=== PATIENT | male | born 1980 | race Caucasian/White ===

== ENCOUNTER 2017-06-21 17:01 | Emergency (ER) | payer SELFPAY ==
[~2017-06-21] VITALS: Ht 175.3 cm; Wt 85.8 kg
[2017-06-21 17:13] VITALS: BP 160/99; PULSE 84; RESP 16; TEMP 98.7; O2SAT 98
[2017-06-21] MEDS ORDERED: ONDANSETRON HCL 4 MG/2 ML VIAL IV PUSH ONE (19:15)
[2017-06-21] MEDS ORDERED: KETOROLAC TROMETHAMINE 30 MG/ML (IVP) VIAL IV PUSH ONE (19:15)
[2017-06-21] MEDS ORDERED: MORPHINE SULFATE 4 MG/ML INJ IV PUSH ONE (19:15)
[2017-06-21 19:19] VITALS: BP 123/79; PULSE 91; RESP 20; O2SAT 100
[2017-06-21 19:29] LABS: AUTOMATED NEUTROPHIL # 7.1 TH/MM3 (1.8-7.7); BASOPHIL # 0.4 TH/MM3 (0-0.2); BASOPHIL % 3.2 % (0.0-2.0); EOSINOPHIL # 0.1 TH/MM3 (0-0.4); EOSINOPHIL % 1.3 % (0.0-4.0); HEMATOCRIT 46.3 % (39.0-51.0); HEMOGLOBIN 15.9 GM/DL (13.0-17.0); LYMPH % 25.5 % (9.0-44.0); LYMPHOCYTE # 2.9 TH/MM3 (1.0-4.8); MEAN CELL VOLUME 91.2 FL (80.0-100.0); MEAN CORPUSCULAR HEMOGLOBIN 31.4 PG (27.0-34.0); MEAN CORPUSCULAR HGB CONC 34.4 % (32.0-36.0); MEAN PLATELET VOLUME 9.9 FL (7.0-11.0); MONOCYTE # 0.7 TH/MM3 (0-0.9); PLATELET COUNT 250 TH/MM3 (150-450); RED BLOOD COUNT 5.08 MIL/MM3 (4.50-5.90); RED CELL DISTRIBUTION WIDTH 12.8 % (11.6-17.2); WHITE BLOOD COUNT 11.2 TH/MM3 (4.0-11.0)
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
[2017-06-21 19:40] LABS: CHLORIDE 109 MEQ/L (98-107); SODIUM (NA) 140 MEQ/L (136-145)
[2017-06-21 19:43] LABS: CALCIUM 9.2 MG/DL (8.5-10.1)
[2017-06-21 19:44] LABS: ALBUMIN 4.2 GM/DL (3.4-5.0); BICARBONATE 24.7 MEQ/L (21.0-32.0); BLOOD UREA NITROGEN 12 MG/DL (7-18); GLUCOSE,RANDOM 81 MG/DL (74-106)
[2017-06-21 19:47] LABS: ALT (GPT) 58 U/L (12-78); AST (GOT) 37 U/L (15-37); CREATININE 0.89 MG/DL (0.60-1.30); GLOMERULAR FILTRATION RATE 98 ML/MIN (>89)
[2017-06-21 19:49] LABS: TOTAL BILIRUBIN ADULT 0.3 MG/DL (0.2-1.0); TOTAL PROTEIN 7.9 GM/DL (6.4-8.2)
[2017-06-21 19:50] LABS: ALKALINE PHOSPHATASE 87 U/L (45-117)
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
[2017-06-21] MEDS ORDERED: ROBA500T PO (20:20)
[2017-06-21] MEDS ORDERED: DICL75TA PO (20:20)
[2017-06-21] MEDS ORDERED: PRED20 PO (20:32)
[2017-06-21] MEDS ORDERED: HYDR-3516 PO (20:32)
[2017-06-21 20:45] VITALS: BP 148/77; PULSE 86; RESP 14; O2SAT 96
[2017-06-21] MEDS ORDERED: DEXAMETHASONE SOD PHOS 20 MG/5 ML VIAL IV PUSH ONE (20:45)
[2017-06-21] MEDS ORDERED: MORPHINE SULFATE 2 MG/ML INJ IV PUSH ONE (20:45)
[2017-06-21 20:50] VITALS: RESP 14
== END 2017-06-21 21:19 | disposition home or self-care (01) ==
LOC: PHED 17:01 → PHEFT 21:19
DX: M54.6 Pain in thoracic spine (principal); R10.12 Left upper quadrant pain; Z72.0 Tobacco use
CPT/HCPCS: 72128; 80053; 83690; 85025; 96374; 96375; 96376; 99284; J1100; J1885; J2270; J2405

== ENCOUNTER 2017-07-27 11:22 | Emergency (ER) | payer SELFPAY ==
[~2017-07-27] VITALS: Ht 175.3 cm; Wt 83.9 kg
[~2017-07-27 11:22] MED LIST: DICL75TA PO; HYDR-3516 PO; PRED20 PO; ROBA500T PO
[2017-07-27 11:37] VITALS: BP 149/74; PULSE 88; RESP 16; TEMP 98.3; O2SAT 96
[2017-07-27] MEDS ORDERED: LIDOCAINE HCL 1% PF 30 ML VIAL ONE (11:54)
[2017-07-27] MEDS ORDERED: DICL75TA PO (11:55)
[2017-07-27] MEDS ORDERED: CEPH-460 PO (11:55)
[2017-07-27] MEDS ORDERED: CLIN150C14 PO (11:55)
[2017-07-27] MEDS ORDERED: LIDOCAINE HCL 1% 50 ML VIAL INFIL ONE (12:00)
[2017-07-27] MEDS ORDERED: CLINDAMYCIN PHOS 600 MG/4 ML VIAL IM ONE (12:00)
[2017-07-27] MEDS ORDERED: BUPIVACAINE HCL PF 0.5% 10 ML VIAL INFIL ONE (12:00)
[2017-07-27] MEDS ORDERED: BACT800T5 PO (12:20)
--- NOTE | 2017-07-27 12:27 | PD ---
HPI Chief Complaint: Skin Problem Time Seen by Provider: 11:49 Travel History International Travel<30 days: No Contact w/Intl Traveler<30days: No Traveled to known affect area: No History of Present Illness HPI 36-year-old male that presents to the ED for evaluation of possible infection to his left index finger. Per patient she's had this for about a week and half. 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 Per patient he believes that he cut it with a piece of metal. Per patient he was reddened pimple-like yesterday and he himself expressed the pus. Per patient he was able to get some pulsatile but today became more severe and more painful. Patient is concerned that there is an infection in there. Per patient he is up-to-date with his tetanus. No other medical issues. No foreign body sensation. Able to move it fully but has pain with flexion. All the pain and swelling since to the dorsal aspect of the PIP area of the left index finger. Some soft tissue swelling noted. Erythema noted. Per patient the pain is 8 out of 10 especially with movement and touch. PFSH Past Medical History Hx Anticoagulant Therapy: No Diabetes: No Past Surgical History Abdominal Surgery: Yes (HERNIA) Social History Alcohol Use: Yes Tobacco Use: Yes Substance Use: No Allergies-Medications (Allergen,Severity, Reaction): Coded Allergies: No Known Allergies (Unverified , 07/27/17) Reported Meds & Prescriptions Reported Meds & Active Scripts Active Bactrim DS (Sulfamethoxazole-Trimethoprim) 800-160 Mg Tab 1 Tab PO BID 10 Days Clindamycin (Clindamycin HCl) 150 Mg Cap 300 Mg PO Q8HR [address] (Diclofenac Sodium) 75 Mg Tabdr 75 Mg PO BID PRN Review of Systems Except as stated in HPI: all other systems reviewed are Neg Physical Exam Narrative GENERAL: SKIN: Warm and dry. HEAD: Atraumatic. Normocephalic. EYES: Pupils equal and round. No scleral icterus. No injection or drainage. ENT: No nasal bleeding or discharge. Mucous membranes pink and moist. NECK: Trachea midline. No JVD. CARDIOVASCULAR: Regular rate and rhythm. RESPIRATORY: No accessory muscle use. Clear to auscultation. Breath sounds equal bilaterally. GASTROINTESTINAL: Abdomen soft, non-tender, nondistended. Hepatic and splenic margins not palpable. MUSCULOSKELETAL: Extremities without clubbing, cyanosis, or edema. No obvious deformities. Full range of motion of the upper and lower extremities bilaterally. Patient has full range of motion of the left index finger but has pain with flexion. Unable to do it however. Patient has soft tissue swelling as well as erythema on the dorsal aspect of the left PIP joint. Joint itself appears to be intact. Most of the swelling appears to be in the dorsal aspect. No obvious purulence felt. Warm to touch and erythematous NEUROLOGICAL: Awake and alert. No obvious cranial nerve deficits. Motor grossly within normal limits. Five out of 5 muscle strength in the arms and legs. Normal speech. PSYCHIATRIC: Appropriate mood and affect; insight and judgment normal. Data Data Last Documented VS Vital Signs Date Time Temp Pulse Resp B/P (MAP) Pulse Ox O2 Delivery O2 Flow Rate FiO2 07/27/17 11:37 98.3 88 16 149/74 (99) 96 Orders Orders Wound Culture And Gram Stain (07/27/17 11:51) Wound Care (07/27/17 11:51) Bupivacaine Pf 0.5% Inj (Marcaine Pf 0.5 (07/27/17 12:00) Lidocaine 1% Inj (50 Ml) (Xylocaine 1% I (07/27/17 12:00) Clindamycin Inj (Cleocin Inj) (07/27/17 12:00) Lidocaine Pf 1% Inj (Xylocaine-Mpf 1% In (07/27/17 11:54) Splint Or Brace Apply/Monitor (07/27/17 12:19) Ed Discharge Order (07/27/17 12:20) [facility] Medical Decision Making Medical Screen Exam Complete: Yes Emergency Medical Condition: Yes Medical Record Reviewed: Yes Differential Diagnosis Abscesses versus pustule versus cellulitis Narrative Course 36-year-old male that presents to the ED for evaluation of left index finger infection. Patient was properly examined and was found to have signs and symptoms consistent appears to be a superficial abscess. He appears to be injuring. Patient wanted lanced again. At this time I do recommend this. After explaining procedure to the patient and he agreed to it abscess was incised and drained as stated in procedure note. Minimal to no pus was expressed. Culture was taken however. Patient will be started on clindamycin here. Patient was given prescription for clindamycin and Bactrim. Given prescription for Robaxin for pain. Told to apply ice to the area. Given wound care as well as splint. Follow-up with PCP. Recheck in 48 hours if not better. See ED worsening symptoms. Procedures Procedure Narrative After the risks and benefits were discussed the following procedure was performed: INCISION AND DRAINAGE OF ABSCESS: The area was prepped and was sterilely draped. A subcutaneous wheal of 1 % Xylocaine with a total number 5 mL was used to anesthetize the area for digital block. The area was properly anesthetized. A number 11 scalpel was used to make a 0.5 -cm incision across the area of the abscess. Cultures were obtained. The abscess was drained an irrigated with normal saline. Quarter inch iodoform packing was placed in the wound. Sterile dressing applied. Patient advised to have packing removed in two days. Diagnosis Primary Impression: Finger infection Patient Instructions: General Instructions Additional Instructions: Take medications as prescribed. Ice to the area. Change dressings daily. Packing removal in 48 hours. Recheck in 48 hours if no improvement all. See ED worsening symptoms. Med/Other Pt SpecificInfo: Prescription(s) given, Wound Care Scripts Sulfamethoxazole-Trimethoprim (Bactrim DS) 800-160 Mg Tab 1 TAB PO BID for Infection for 10 Days, #20 TAB 0 Refills Prov: Darius Boone MD 07/27/17 Clindamycin (Clindamycin) 150 Mg Cap 300 MG PO Q8HR for Infection for 10 Days, CAP 0 Refills Prov: Darius Boone MD 07/27/[address] (Diclofenac Sodium DR) 75 Mg Tabdr 75 MG PO BID Y for PAIN SCALE 1 TO 10, #20 TAB 0 Refills Prov: Darius Boone MD 07/27/17 Disposition: 01 DISCHARGE HOME Condition: Stable [place] Collazo Jul 27, 2017 12:27
== END 2017-07-27 12:47 | disposition home or self-care (01) ==
LOC: PHEFT 11:22
DX: L02.512 Cutaneous abscess of left hand (principal); Z72.0 Tobacco use
CPT/HCPCS: 10061; 87070; 87205; 96372